=== PATIENT | female | born 1965 | race Caucasian/White ===

== ENCOUNTER 2020-11-11 08:57 | Day surgery (SDC) | payer OTHER ==
[2020-11-09 15:52] VITALS: BMI 31.3
[2020-11-11 09:58] VITALS: TEMP 97.5
[2020-11-11] MEDS ORDERED: MIDAZOLAM HCL 2 MG/2 ML SINGLE DOSE VIAL ONE ×2 (10:52→11:29)
[2020-11-11] MEDS ORDERED: DEXAMETHASONE SOD PHOSPHATE 10 MG/1 ML VIAL ONE (10:52)
[2020-11-11] MEDS ORDERED: ROPIVACAINE HCL 0.5% 30ML VIAL ONE (10:52)
[2020-11-11] MEDS ORDERED: PROPOFOL 20 ML ONE ×3 (11:21→11:35)
[2020-11-11] MEDS ORDERED: ceFAZolin SODIUM 1 GM VIAL ONE ×2 (11:22)
[2020-11-11] MEDS ORDERED: DEXAMETHASONE SOD PHOSPHATE 4 MG/1 ML VIAL ONE (11:23)
[2020-11-11] MEDS ORDERED: ONDANSETRON 4 MG/2 ML VIAL ONE (11:23)
[2020-11-11 13:02] VITALS: BP 111/72; PULSE 71
== END 2020-11-11 13:25 | disposition home or self-care (01) ==
LOC: FASU 08:57
PROVIDERS: ATTEND Orthopaedic Surgery Hand Surgery
PROC: 0LX70ZZ Transfer Right Hand Tendon, Open Approach (ICD-10-PCS; principal; 2020-11-11 11:30)
DX: M18.11 Unilateral primary osteoarthritis of first carpometacarpal joint, right hand (principal)
CPT/HCPCS: 25447; 26480; C1713; J1100